=== PATIENT | male | born 1975 ===

== ENCOUNTER 2018-05-20 00:05 | Emergency (ER) | payer OTHER ==
[2018-05-20] MEDS ORDERED: SODIUM CHLORIDE 0.9% 1,000 ML IV STA (00:20)
[2018-05-20] MEDS ORDERED: DIPH,PERTUS(ACELL)TETVAC-LF 0.5 ML VIAL IM ONE (00:22)
[2018-05-20 00:35] VITALS: TEMP 98.7
[2018-05-20] MEDS ORDERED: LORazepam 2 MG/ML INJ IM STA (00:36)
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
[2018-05-20] MEDS ORDERED: TOPICAL SKIN ADHESIVE 1 EACH AMP TOPICAL ONE (00:56)
[2018-05-20 01:00] LABS: Basophils # (A) 0.1 k/uL (0-0.2); Basophils % (A) 1 %; Eosinophils % (A) 0 %; HCT 52.3 % (39.0-53.0); HGB 16.5 gm/dL (13.0-17.5); Lymphocytes # (A) 2.6 k/uL (1.0-4.8); Lymphocytes % (A) 18 %; MCHC 31.6 g/dL (31.0-37.0); Mean Platelet Volume 6.9; Monocytes # (A) 0.8 k/uL (0-1.0); Monocytes % (A) 6 %; Neutrophils # (A) 10.2 k/uL (1.3-7.7); Neutrophils % (A) 73 %; Platelet Count 355 k/uL (150-450); RBC 5.33 m/uL (4.30-5.90); RDW 12.8 % (11.5-15.5)
[2018-05-20 01:08] LABS: Appearance,Urine Cloudy (Clear); Bilirubin,Urine Negative (Negative); Blood,Urine Moderate (Negative); Color,Urine Yellow; Glucose,Urine (UA) Negative (Negative); Hyaline Casts,Urine 19 /lpf (0-2); Ketones,Urine Trace (Negative); Leukocyte Esterase,Urine Negative (Negative); Mucus,Urine Moderate /hpf; Nitrite,Urine Negative (Negative); PH, Urine 5.5 (5.0-8.0); Protein,Urine 3+ (Negative); RBC,Urine 25 /hpf (0-5); Specific Gravity,Urine 1.022 (1.001-1.035); Sperm,Urine Rare /hpf; Squamous Epithelial Cell,Urine 1 /hpf (0-4); WBC,Urine 42 /hpf (0-5)
[2018-05-20 01:09] LABS: ALT 68 U/L (21-72); Albumin 5.4 g/dL (3.5-5.0); Alcohol <10 mg/dL; Alkaline Phosphatase 63 U/L (38-126); Anion Gap 34 mmol/L; Blood Urea Nitrogen 11 mg/dL (9-20); Calcium 10.3 mg/dL (8.4-10.2); Chloride 101 mmol/L (98-107); Creatine Kinase 911 U/L (55-170); Glucose 223 mg/dL (74-99); Potassium 3.8 mmol/L (3.5-5.1); Sodium 143 mmol/L (137-145); Total Bilirubin 1.4 mg/dL (0.2-1.3); Total Protein 8.7 g/dL (6.3-8.2)
[2018-05-20] MEDS ORDERED: SODIUM CHLORIDE 0.9% 2,000 ML IV ONE (01:11)
[2018-05-20 01:15] LABS: AST 67 U/L (17-59); Amphetamine Screen,Urine Detected (NotDetected); Barbiturate Screen,Urine Not Detected (NotDetected); Benzodiazepines Screen,Urine Not Detected (NotDetected); Cocaine Screen,Urine Not Detected (NotDetected); Methadone Screen, Urine Not Detected (NotDetected); Opiate Screen,Urine Not Detected (NotDetected); Oxycodone Screen, Urine Not Detected (NotDetected); Phencyclidine Screen,Urine Not Detected (NotDetected); Tricyclic Antidepressant,Urine Not Detected (NotDetected); Urn Cannabinoid Scrn Not Detected (NotDetected)
[2018-05-20] MEDS ORDERED: LORazepam 2 MG/ML INJ IV STA (01:17)
[2018-05-20 01:26] LABS: Carbon Dioxide 8 mmol/L (22-30)
--- NOTE | 2018-05-20 01:41 | XR ---
EXAMINATION TYPE: XR hand limited LT DATE OF EXAM: 05/20/2018 COMPARISON: NONE HISTORY: Pain TECHNIQUE: 2 views FINDINGS: Metacarpals appear intact. I see no fracture nor dislocation. Joint spaces are normal. Ther e are no erosions. IMPRESSION: Negative left hand exam. Middle finger appears intact.
--- NOTE | 2018-05-20 01:42 | XR ---
EXAMINATION TYPE: XR foot limited LT DATE OF EXAM: 05/20/2018 COMPARISON: NONE HISTORY: Foot and ankle pain TECHNIQUE: 2 views FINDINGS: There are plantar and Achilles calcaneal spurs. Metatarsals are intact. I see no fracture n or dislocation. There are no erosions. Joint spaces are fairly normal. IMPRESSION: Calcaneal spurring. No fracture seen.
[2018-05-20] MEDS ORDERED: ceFAZolin 1,000 MG in DEXTROSE/WATER 1 50ML.BAG IVPB STA (01:49)
--- NOTE | 2018-05-20 02:04 | XR ---
EXAMINATION TYPE: XR ankle limited LT DATE OF EXAM: 05/20/2018 COMPARISON: NONE HISTORY: Foot and ankle pain TECHNIQUE: 2 views FINDINGS: There are plantar and Achilles calcaneal spurs. Ankle mortise is anatomic. I see no fractur e nor dislocation. Joint spaces are normal. IMPRESSION: Calcaneal spurring. No fracture seen.
--- NOTE | 2018-05-20 02:06 | XR ---
EXAMINATION TYPE: XR femur RT DATE OF EXAM: 05/20/2018 COMPARISON: NONE HISTORY: Leg pain TECHNIQUE: 5 views FINDINGS: There is intramedullary fiorella fixing old fracture of the midshaft of the femur. There are tra nsverse screws distally. Hip joint is intact. Knee joint appears intact. I see no acute fracture nor dislocation. IMPRESSION: No acute abnormality of the right femur.
[2018-05-20 02:36] VITALS: BP 107/68; PULSE 105; RESP 20
== END 2018-05-20 02:50 | disposition home or self-care (01) ==
LOC: EC 00:05
DX: S61.213A Laceration without foreign body of left middle finger without damage to nail, initial encounter (principal); N17.9 Acute kidney failure, unspecified; S61.214A Laceration without foreign body of right ring finger without damage to nail, initial encounter; S60.812A Abrasion of left wrist, initial encounter; S60.811A Abrasion of right wrist, initial encounter; S90.412A Abrasion, left great toe, initial encounter; R22.0 Localized swelling, mass and lump, head; R00.0 Tachycardia, unspecified; R45.1 Restlessness and agitation; F41.9 Anxiety disorder, unspecified; M79.642 Pain in left hand; M79.672 Pain in left foot; R79.89 Other specified abnormal findings of blood chemistry; Z87.891 Personal history of nicotine dependence; Z91.018 Allergy to other foods; Z23 Encounter for immunization; Y09 Assault by unspecified means
CPT/HCPCS: 36415; 93005; 80053; 82550; 85025; 81001; 80306; 80320; 73552; 73120; 73600; 73620; 90715; 99285; 96365; 96375; 96361; 96372; 90471; J2060; J0690